=== PATIENT | female | born 1975 | race Caucasian/White ===

== ENCOUNTER 2023-06-06 13:55 | Emergency (ER) | payer BC, SELFPAY ==
[2023-06-06 13:57] VITALS: BP 137/91
--- NOTE | 2023-06-06 14:44 | ED.GENMED ---
History of Present Illness
General
Chief Complaint: Musculo-Skeletal Complaint
Source: patient
Exam Limitations: none
Time Seen by Provider: 06/06/23 14:11
Nursing documentation reviewed up to this point in time: agreed with
Travel History
Have you had any contact with someone who has COVID-19?: No
Do you have any symptoms of coronavirus? Fever > 100 degrees, chills, cough, shortness of breath, sore throat, loss of taste or smell, muscle aches, or headache?: No
History of Present Illness
History of Present Illness:
Pt is a 48 yr old female c/o of right knee pain. Patient reports 3 weeks ago she was getting off of a stool and twisted her right knee. She denies actual trauma. She since then complains of pain to the right knee however pain is now getting
worse. She has not had this evaluated. She c/o of pain to medial aspect of right knee worse with going up and down steps. She has been taking ibuprofen which did not relieve her symptoms. She presents here to the ER today because of increasing
pain. She reports last night she was up on it because she is unable to sleep because of throbbing pain.
Review of Systems
Review of Systems
Allergies reviewed?: Yes
All Other Systems: ROS reviewed and negative except as documented in HPI and ROS
Constitutional: Reports no symptoms
Musculoskeletal: Reports other (right knee pain )
Skin: Reports no symptoms
Neurological: Reports no symptoms
Psychiatric: Reports no symptoms
Phy Exam
General Physical Exam
General Presentation: well appearing
General age: appears stated age
General Skin: warm and dry
General Habitus: normal
General Mental: alert
General Hydration: appears well hydrated
Neurological Exam
Neurological Exam: alert and oriented x3
Musculoskeletal Exam
Musculoskeletal Exam: other (Right lower extremity strong pulses mild swelling to generalized knee tender throughout the medial region no laxity however tender on medial stress no calf tenderness)
Skin Exam
Skin Exam: normal color and warm/dry
Psychiatric Exam
Psychiatric Exam: normal mood/affect
Course
Orders/Labs/Results
Orders:
Orders
06/06/23 14:41
Ketorolac [Toradol] 30 mg IM NOW STA
Knee, Right 4 or More Views [CR Knee- Right 4 Or More View*] Urgent
Comment:
Reason For Exam: trauma
06/06/23 15:57
Knee Immobilizer Right-Treatme ONCE
Hydrocodone 5/APAP 325 [[place] 5/325] 1 tablet PO NOW STA
Vital Signs
Initial and Last Documented VS:
Initial Vital Signs
Temp Pulse Resp BP Pulse Ox
98.1 F 98 18 137/91 99
06/06/23 13:57 06/06/23 13:57 06/06/23 13:57 06/06/23 13:57 06/06/23 13:57
Last Documented Vital Signs
Temp Pulse Resp BP Pulse Ox
98.1 F 98 18 137/91 99
06/06/23 13:57 06/06/23 13:57 06/06/23 13:57 06/06/23 13:57 06/06/23 13:57
MDM/Problems Addressed
Differential Diagnosis Includes:
Not limited to meniscus injury, ligament tear, sprain strain
MDM/Problems Addressed:
Patient had a twisting injury to right knee several weeks ago however now has increasing throbbing pain to the medial aspect of her right knee. On exam she is tender throughout she has pain with medial stress but no laxity. There is no evidence of
fracture but there is suggestion of small to moderate effusion in the suprapatellar recess symptoms are concerning for meniscal tear versus medial ligament injury. Will DC with immobilizer will have patient continue her NSAID however patient does
request something stronger as pain is getting worse and she has been up all night with pain. I do feel that this is reasonable. Patient does seem very uncomfortable will give 1 dose here is coming to pick patient up and will discharge on
short course of pain medication to take only as needed if NSAID does not work. I did recommend close follow-up with orthopedics.
*Radiology
Radiology exam reviewed: radiology read reviewed
*Critical Care Note
Total Time (30-74mins, 75-104mins- exclusive of procedures): Not Applicable
ED Attending Note
-
Portions of this chart may have been created with voice recognition software.� Occasional wrong word or��sound alike� substitutions may have occurred due to the inherent limitations of voice recognition software.
Discharge Plan
Departure
Patient Disposition: Home (Routine Discharge)
Date of Disposition: 06/06/23
Time of Disposition: 15:58
Patient with high blood pressure during this ER visit?: Yes
Condition: Fair
Covid-19: Not Applicable
Discharge Problem:
Knee sprain
Instructions: Knee Immobilizer (DC), Knee Sprain (DC)
Prescriptions:
New
hydrocodone-acetaminophen 5-325 mg tablet
1 tab PO Q6H PRN (Reason: Pain) Qty: 10 0RF
Referrals:
Johnson Wilkinson MD [Family Provider] -
Andrew Alexander MD [Active] -
Activity Restrictions/Additional Instructions:
As discussed keep elevated as much as possible. Wear immobilizer for support throughout the day but remove at night while sleeping. You may take your Aleve as directed twice a day however if symptoms are not relieved you may take pain medication.
Take only as directed. This medication was sent to your pharmacy. This medication is a narcotic. No driving or drinking alcohol while taking this medication. This medication may cause drowsiness. This medication may cause constipation. Please
take [id number] stool softener while taking this medication. Call orthopedics today to make an appointment as soon as possible in the several days .
return if any worsening of symptoms.
Interventions
Interventions:
ED-Musculoskeletal Assessment Last Done: 06/06/23 14:31
[2023-06-06] MEDS: TORADOL 30 MG IM (15:16)
[2023-06-06] MEDS: NORCO 5/325 1 TABLET PO (16:12)
== END 2023-06-06 16:57 | disposition home or self-care (01) ==
LOC: EMR 13:55
PROVIDERS: EMERGENCY PHYSICIAN Emergency Medicine; FAMILY PHYSICIAN Internal Medicine
DX: S83.91XA Sprain of unspecified site of right knee, initial encounter (principal); X50.1XXA Overexertion from prolonged static or awkward postures, initial encounter; R03.0 Elevated blood-pressure reading, without diagnosis of hypertension
CPT/HCPCS: 99284; 29505; 96372; 73564